=== PATIENT | male | born 1990 | race Caucasian/White ===

== ENCOUNTER → 2022-08-06 | Outpatient (CLI) | payer BC ==
[~2022-08-06] MED LIST: APRISO0.375 GM PO; METF500 PO
== END | disposition home or self-care (01) ==
LOC: LAB SHORT 15:16
DX: R35.0 Frequency of micturition (principal)
CPT/HCPCS: 87086

== ENCOUNTER 2023-03-16 01:40 | Day surgery (SDC) | payer BC ==
[2023-03-16 09:12] VITALS: BP 100/62
[2023-03-16] MEDS ORDERED: HUMALOG KW100 UNIT/1 SC (09:15)
[2023-03-16] MEDS ORDERED: INFLECTRA100 MG IV (09:16)
[2023-03-16] MEDS ORDERED: SEMGLEE (Y100 UNIT/2 SC (09:18)
[2023-03-16 10:02] VITALS: BP 112/80
[2023-03-16 10:14] VITALS: BP 117/72
[2023-03-16 10:27] VITALS: BP 117/63
== END 2023-03-16 11:30 | disposition home or self-care (01) ==
LOC: ATC 01:40
DX: K51.90 Ulcerative colitis, unspecified, without complications (principal)
CPT/HCPCS: 96413; 96415; J7050; Q5103

== ENCOUNTER 2023-03-30 00:31 | Day surgery (SDC) | payer BC ==
[~2023-03-30] VITALS: Wt 86.5 kg
[~2023-03-30 00:31] MED LIST changes: +HUMALOG KW100 UNIT/1 SC; +INFLECTRA100 MG IV; +SEMGLEE (Y100 UNIT/2 SC
[2023-03-30 09:00] VITALS: BP 111/77
[2023-03-30 10:19] VITALS: BP 109/65
== END 2023-03-30 11:45 | disposition home or self-care (01) ==
LOC: ATC 00:31
DX: K51.90 Ulcerative colitis, unspecified, without complications (principal); E10.9 Type 1 diabetes mellitus without complications; Z88.0 Allergy status to penicillin; Z79.899 Other long term (current) drug therapy
CPT/HCPCS: 96365; 96413; 96415; J7050; Q5103

== ENCOUNTER 2023-07-07 02:32 | Day surgery (SDC) | payer BC ==
[2023-07-07 14:23] VITALS: BP 138/86
== END 2023-07-07 16:42 | disposition home or self-care (01) ==
LOC: ATC 02:32
DX: K51.90 Ulcerative colitis, unspecified, without complications (principal); E10.9 Type 1 diabetes mellitus without complications; Z88.0 Allergy status to penicillin
CPT/HCPCS: 96413; 96415; J7050; Q5103

== ENCOUNTER 2023-09-02 07:41 | Day surgery (SDC) | payer BC ==
[2023-09-02 08:01] VITALS: BP 140/76
== END 2023-09-02 10:25 | disposition home or self-care (01) ==
LOC: ATC 07:41
DX: K51.90 Ulcerative colitis, unspecified, without complications (principal)
CPT/HCPCS: 96413; 96415; J7050; Q5103

== ENCOUNTER 2023-10-29 03:59 | Day surgery (SDC) | payer BC ==
[2023-10-29 08:10] VITALS: BP 143/79
== END 2023-10-29 10:50 | disposition home or self-care (01) ==
LOC: ATC 03:59
DX: K51.90 Ulcerative colitis, unspecified, without complications (principal); E10.9 Type 1 diabetes mellitus without complications
CPT/HCPCS: 96413; 96415; J7050; Q5103

== ENCOUNTER 2024-06-08 02:46 | Day surgery (SDC) | payer BC ==
[~2024-06-08] VITALS: Wt 93.1 kg
[2024-06-08 08:05] VITALS: BP 128/79
[2024-06-08] MEDS ORDERED: NS IV SCH (08:25)
[2024-06-08] MEDS ORDERED: INFLIXIMAB DYYB IV SCH (08:25)
== END 2024-06-08 11:26 | disposition home or self-care (01) ==
LOC: ATC 02:46
DX: K51.90 Ulcerative colitis, unspecified, without complications (principal); E10.9 Type 1 diabetes mellitus without complications; Z88.0 Allergy status to penicillin; Z79.4 Long term (current) use of insulin; Z79.899 Other long term (current) drug therapy
CPT/HCPCS: 96413; 96415; J7050; Q5103

== ENCOUNTER 2024-08-01 01:18 | Day surgery (SDC) | payer BC ==
[2024-08-01 08:01] VITALS: BP 126/83
--- NOTE | 2024-08-01 08:03 | NUR ---
DURING THE FIRST IV ATTEMPT, THE IV WAS NOT PATENT AND WAS REMOVED. PT IMMEDIATELY DISPLAYED SYNCOPAL SYMPTOMS AND WAS UNRESPONSIVE AND BREATHING. VITAL SIGNS OBTAINED AND ALL WNL. PT BEGAN SNORING RESPIRATIONS AND THEN SLOWLY STARTED TO OPEN HIS EYES. THERE WERE APPROX 5 SECONDS OF SEIZURE LIKE ACTIVITY AND THEN PT FULLY AROUSED WITH SOME BRIEF CONFUSION. PT THEN STATED "I'M SORRY, I DON'T KNOW WHAT HAPPENED". COLD WASHCLOTH PLACED TO FOREHEAD AND PT RECLINED IN THE CHAIR. PT CONFIRMS THAT HE IS DIABETIC AND HAS NOT HAD ANYTHING TO EAT OR DRINK. OFFERED JUICE AND A SNACK AND PT ACCEPTED. 2ND IV ATTEMPT WAS SUCCESSFUL AND PT DENIED COMPLAINTS. CALL LIGHT WITHIN REACH AND WILL CONTINUE TO ASSESS FOR ANY CONCERNS.
[2024-08-01 08:04] VITALS: BP 157/78
[2024-08-01] MEDS ORDERED: Infliximab-DYYB 500 MG in NS 250 ML IV SCH (08:15)
== END 2024-08-01 10:02 | disposition home or self-care (01) ==
LOC: ATC 01:18
DX: K51.90 Ulcerative colitis, unspecified, without complications (principal); E10.9 Type 1 diabetes mellitus without complications; Z88.0 Allergy status to penicillin
CPT/HCPCS: 96413; J7050; Q5103

== ENCOUNTER → 2025-09-14 | Outpatient (CLI) | payer BC ==
[2025-09-14 13:30] LABS: BASOPHILS ABSOLUTE AUTO 0.07 K/mm3 (0.00-0.23); BASOPHILS PERCENT AUTO 1 % (0-2); EOSINOPHILS ABSOLUTE AUTO 0.14 K/mm3 (0.00-0.68); EOSINOPHILS PERCENT AUTO 2 % (0-6); Hematocrit 46.4 % (37.0-53.0); Hemoglobin 15.4 g/dL (13.5-17.5); IMMATURE GRAN ABSOLUTE AUTO 0.01 K/mm3 (0.00-0.10); IMMATURE GRAN PERCENT AUTO 0 % (0-1); LYMPHOCYTES ABSOLUTE AUTO 3.72 K/mm3 (0.84-5.20); LYMPHOCYTES PERCENT AUTO 47 % (21-46); MONOCYTES ABSOLUTE AUTO 0.57 K/mm3 (0.16-1.47); MONOCYTES PERCENT AUTO 7 % (4-13); Mean Corpuscular HGB Conc 33.2 g/dL (31.5-36.5); Mean Corpuscular Volume 92 fL (80-100); NEUTROPHILS ABSOLUTE AUTO 3.39 K/mm3 (1.96-9.15); NEUTROPHILS PERCENT AUTO 43 % (41-73); NRBC ABSOLUTE 0.00 K/mm3 (0.00-0.02); NRBC Auto 0.0 /100 WBC (0.0-0.2); Platelet Count 376 K/mm3 (150-400); RDW Coefficient Variation 12.6 % (11.7-14.2); RDW Standard Deviation 42.5 fL (35.1-46.3)
[2025-09-14 14:14] LABS: Alanine Aminotransfer (ALT/SGP 179 U/L (12-78); Albumin, Blood 3.8 g/dL (3.4-5.0); Albumin/Globulin Ratio 1.2 (0.8-1.8); Anion Gap 7 mmol/L (3-11); Aspartate Aminotrans (AST/SGOT 46 U/L (12-37); Bilirubin, Total 0.4 mg/dL (0.1-1.0); Blood Urea Nitrogen 11 mg/dL (8-24); CHOL/HDL RATIO 3.1; CO2, Blood 29 mmol/L (21-32); Calcium, Blood 8.9 mg/dL (8.5-10.1); Chloride, Blood 103 mmol/L (98-108); Cholesterol 173 mg/dL (50-200); Creatinine, Blood 0.99 mg/dL (0.60-1.20); Globulin, Blood 3.1 g/dL (2.2-4.0); Glucose, Blood 225 mg/dL (70-99); HDL Cholesterol 55 mg/dL (>39); LDL/HDL RATIO 1.8; Low Density Lipoprotein Chol 101 mg/dL (0-110); Potassium, Blood 3.7 mmol/L (3.5-5.5); Sodium, Blood 135 mmol/L (136-145); Total Protein, Blood 6.9 g/dL (6.4-8.2); Triglycerides 86 mg/dL (30-140); Very Low Density Lipoprot Chol 17 mg/dL (6-28)
== END ==
LOC: LAB SHORT 11:19 → LAB 11:19
PROVIDERS: Family Medicine
DX: E78.49 Other hyperlipidemia (principal); E10.9 Type 1 diabetes mellitus without complications
CPT/HCPCS: 80053; 80061; 82043; 83036; 85025